=== PATIENT | female | born 1975 | race Caucasian/White ===

== ENCOUNTER 2019-07-13 11:47 | Emergency (ER) | payer OTHER ==
[2019-07-13 12:12] VITALS: BP 110/70; PULSE 77; TEMP 98.1; BMI 22.3
--- NOTE | 2019-07-13 13:17 | PDOC ---
History of Present Illness - General Chief Complaint: Respiratory Stated Complaint: Cold Symptoms Time Seen by Provider: 07/13/19 12:12 History Source: Patient - History of Present Illness Timing/Duration: reports: other Past History - Past Medical History Allergies/Adverse Reactions: Allergies Allergy/AdvReac Type Severity Reaction Status Date / Time No Known Allergies Allergy Verified 07/13/19 12:12 Home Medications: Ambulatory Orders Benzonatate [Tessalon Pearls -] 100 mg PO TID #21 capsule 07/13/19 COPD: No - Surgical History Abdominal Surgery: (D AND C) - Psycho Social/Smoking Cessation Hx Smoking History: Current every day smoker Number of Cigarettes Smoked Daily: 6 Information on smoking cessation initiated: No Hx Alcohol Use: No Drug/Substance Use Hx: No Review of Systems - Review of Systems Constitutional: No: Chills, Fever Respiratory: Yes: Cough. No: Shortness of Breath, Wheezing, Hemoptysis Cardiac (ROS): No: Chest Pain *Physical Exam - Vital Signs Last Vital Signs Temp Pulse Resp BP Pulse Ox 98.1 F 77 16 110/70 96 07/13/19 12:10 07/13/19 12:10 07/13/19 12:10 07/13/19 12:10 07/13/19 12:10 - Physical Exam General Appearance: Yes: Appropriately Dressed. No: Apparent Distress HEENT: positive: Normal ENT Inspection, Normal Voice, TMs Normal, Pharynx Normal. negative: Scleral Icterus (R), Scleral Icterus (L) Neck: positive: Supple. negative: Lymphadenopathy (R), Lymphadenopathy (L) Respiratory/Chest: positive: Lungs Clear, Normal Breath Sounds. negative: Respiratory Distress Integumentary: positive: Dry, Warm Neurologic: positive: Fully Oriented, Alert, Normal Mood/Affect ED Treatment Course - RADIOLOGY Radiology Studies Ordered: Category Date Time Status CHEST PA & LAT [RAD] Stat Radiology 07/13/19 12:42 Completed Medical Decision Making - Medical Decision Making 07/13/19 13:15 44-year-old female, over [id number] history, here with continued productive cough x3 weeks. No chest pain, shortness of breath ,hemoptysis fever or chills. Was seen by her primary care physician and completed course of Ceftin and currently on Augmentin but continues to have cough. No chest x-ray was taken per patient see exam Cough Smoker Exam wnl CXR neg today -Dc to continue augmentin (started on by PMD), tessalon added -Smoking cessation encouraged -PMD f/u Discharge - Discharge Information Problems reviewed: Yes Clinical Impression/Diagnosis: Cough Condition: Stable Disposition: HOME - Additional Discharge Information Prescriptions: Benzonatate [Tessalon Pearls -] 100 mg PO TID #21 capsule - Follow up/Referral Referrals: Valerie Pedro MD [Primary Care Provider] - - Patient Discharge Instructions Patient Printed Discharge Instructions: How to Quit Smoking Additional Instructions: Chest x-ray shows no infection at this time Current complete antibiotics and start taking Tessalon as directed for cough If symptoms persist, please follow-up with your PMD Strongly consider smoking cessation - Post Discharge Activity
== END 2019-07-13 13:20 | disposition home or self-care (01) ==
LOC: JERFT 11:47
DX: R05 Cough (principal); F17.210 Nicotine dependence, cigarettes, uncomplicated
CPT/HCPCS: 71046-TC-FY; 99283-25

== ENCOUNTER 2022-04-02 11:17 | Emergency (ER) | payer OTHER ==
[2022-04-02 12:24] VITALS: BP 138/90; PULSE 76; RESP 18; TEMP 98.2; BMI 25.7
[2022-04-02] MEDS ORDERED: AMPICILLIN NA/SULBACTAM NA 3 GM in SODIUM CHLORIDE 100 ML IVPB ONE (12:43)
[2022-04-02] MEDS ORDERED: SODIUM CHLORIDE 0.9% 500 ML INFUS.BAG IV ONE (12:44)
[2022-04-02 13:13] LABS: EOS % 3.5 % (0-4.5); HEMATOCRIT 42.2 % (32.4-45.2); LYMPH % 28.3 % (8-40); MCH 29.2 pg (25.7-33.7); MCHC 33.1 g/dl (32.0-36.0); MEAN CELL VOLUME 88.2 fl (80-96); MEAN PLT VOLUME 7.5 fl (7.5-11.1); MONO % 8.8 % (3.8-10.2); NEUT % 58.4 % (42.8-82.8); PLATELET COUNT 431 10^3/uL (134-434); RBC 4.79 M/mm3 (3.60-5.2); RDW 13.9 % (11.6-15.6); WHITE BLOOD COUNT 8.4 K/mm3 (4.0-10.0)
[2022-04-02 13:31] LABS: CALCIUM 9.4 mg/dL (8.5-10.1)
[2022-04-02 13:32] LABS: ALBUMIN 3.9 g/dl (3.4-5.0); BLOOD UREA NITROGEN 15.7 mg/dL (7-18)
[2022-04-02 13:35] LABS: CREATININE 0.8 mg/dL (0.55-1.3)
[2022-04-02 13:37] LABS: BILIRUBIN,TOTAL 0.4 mg/dL (0.2-1); TOT PROT 6.9 g/dl (6.4-8.2)
== END 2022-04-02 14:47 | disposition home or self-care (01) ==
LOC: JERFT 11:17
DX: S91.031A Puncture wound without foreign body, right ankle, initial encounter (principal); W54.0XXA Bitten by dog, initial encounter
CPT/HCPCS: 36415; 80053; 85025; 99284-25

== ENCOUNTER 2023-07-24 21:17 | Emergency (ER) | payer OTHER ==
[2023-07-24 21:27] VITALS: RESP 18; BMI 24.9
[2023-07-24] MEDS ORDERED: METOCLOPRAMIDE HCL INJECTION 10 MG/2 ML VIAL ONE (22:44)
[2023-07-24] MEDS ORDERED: ACETAMINOPHEN INJECTION 100 ML IVPB ONE (22:44)
[2023-07-24] MEDS: SODIUM CHLORIDE 0.9% 500 ML INFUS.BAG IV ONE (23:06)
[2023-07-24] MEDS: METOCLOPRAMIDE HCL INJECTION 10 MG/2 ML VIAL IVPB ONE (23:06)
[2023-07-24] MEDS: ACETAMINOPHEN 1000 MG/100 ML BAG IVPB ONE (23:06)
[2023-07-24 23:24] LABS: BASO % 0.3 % (0-2.0); EOS % 0.3 % (0-4.5); HEMATOCRIT 34.2 % (32.4-45.2); HEMOGLOBIN 11.4 GM/dL (10.7-15.3); LYMPH % 10.6 % (8-40); MCH 27.9 pg (25.7-33.7); MCHC 33.3 g/dl (32.0-36.0); MEAN CELL VOLUME 83.8 fl (80-96); MEAN PLT VOLUME 7.9 fl (7.5-11.1); MONO % 4.3 % (3.8-10.2); NEUT % 84.5 % (42.8-82.8); PLATELET COUNT 389 10^3/uL (134-434); RBC 4.08 M/mm3 (3.60-5.2); RDW 14.4 % (11.6-15.6); WHITE BLOOD COUNT 12.6 K/mm3 (4.0-10.0)
[2023-07-24 23:58] LABS: PH,URINE 8.5 (5.0-8.0); URINE APPEARANCE CLEAR; URINE BILIRUBIN NEGATIVE (NEGATIVE); URINE COLOR YELLOW; URINE GLUCOSE (UA) NEGATIVE (NEGATIVE); URINE KETONE NEGATIVE (NEGATIVE); URINE LEUK ESTERASE NEGATIVE (NEGATIVE); URINE NITRITE NEGATIVE (NEGATIVE); URINE PROTEIN TRACE (NEGATIVE)
[2023-07-25 00:14] LABS: POTASSIUM 4.2 mmol/L (3.5-5.1)
[2023-07-25 00:17] LABS: ALBUMIN 3.5 g/dl (3.4-5.0); BLOOD UREA NITROGEN 14.6 mg/dL (7-18)
[2023-07-25 00:20] LABS: CREATININE 0.5 mg/dL (0.55-1.3)
[2023-07-25 00:21] LABS: TOT PROT 6.7 g/dl (6.4-8.2)
[2023-07-25 00:36] LABS: BILIRUBIN,TOTAL 0.3 mg/dL (0.2-1)
[2023-07-25 01:47] VITALS: BP 132/76; PULSE 88; TEMP 98.1
== END 2023-07-25 01:47 | disposition home or self-care (01) ==
LOC: JER 21:17
PROC: 3E033GC Introduction of Other Therapeutic Substance into Peripheral Vein, Percutaneous Approach (ICD-10-PCS; principal; 2023-07-24)
PROC: 3E033NZ Introduction of Analgesics, Hypnotics, Sedatives into Peripheral Vein, Percutaneous Approach (ICD-10-PCS; 2023-07-24)
DX: R51.9 Headache, unspecified (principal); B34.9 Viral infection, unspecified; R10.30 Lower abdominal pain, unspecified; Z20.822 Contact with and (suspected) exposure to COVID-19
CPT/HCPCS: 0241U-QW; 36415; 70450-TC; 80053; 81003; 83690; 84703; 85025; 87086; 99284-25; J0131